=== PATIENT | female | born 1975 | race Caucasian/White ===

== ENCOUNTER 2022-03-20 12:47 | Emergency (ER) | payer BC ==
[~2022-03-20] VITALS: Ht 172.7 cm; Wt 76.8 kg
[2022-03-20 12:59] VITALS: BP 120/89
== END 2022-03-20 16:10 | disposition home or self-care (01) ==
LOC: ER 12:47
DX: F41.9 Anxiety disorder, unspecified (principal); Z88.1 Allergy status to other antibiotic agents; Z88.8 Allergy status to other drugs, medicaments and biological substances; Z90.49 Acquired absence of other specified parts of digestive tract
CPT/HCPCS: 93005; 99283